=== PATIENT | female | born 1995 | race Two or more races ===

== ENCOUNTER 2017-03-16 02:16 | Emergency (ER) | payer SELFPAY ==
--- NOTE | 2017-03-16 02:53 | EDM.PDOC ---
ED HPI GENERAL MEDICAL PROBLEM - General Chief Complaint: General Stated Complaint: L HAND NUMBNESS Time Seen by Provider: 03/16/17 02:40 Source of Information: Reports: Patient, Family, RN Notes Reviewed History Limitations: Reports: No Limitations - History of Present Illness INITIAL COMMENTS - FREE TEXT/NARRATIVE: 22-year-old female presents emergency department day complaint of left hand numbness predominantly in digits 123, she has had this problem for 3 years however tonight it seemed to last a little longer than usual symptoms resolve within 2-3 hours, recently moved here from [place] 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 Left Feet Pain Score (Numeric/FACES): 4 - Related Data Allergies Allergy/AdvReac Type Severity Reaction Status Date / Time No Known Allergies Allergy Verified 03/16/17 02:25 Home Meds: Home Meds NK [No Known Home Meds] 03/16/17 [History] Past Medical History HEENT History: Reports: Epistaxis Gastrointestinal History: Reports: Other (See Below) Other Gastrointestinal History: irregular bowel movements mix of diarrhea and constipation 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: Other (See Below) Other OB/BYN History: ovarian cysts Musculoskeletal History: Reports: Fracture Endocrine/Metabolic History: Reports: Diabetes, Type II Social & Family History - Tobacco Use Smoking Status *Q: Current Every Day Smoker Years of Tobacco use: 3 Packs/Tins Daily: 0.2 - Caffeine Use Caffeine Use: Reports: Coffee, Soda - Alcohol Use Days Per Week of Alcohol Use: 4 Number of Drinks Per Day: 1 Total Drinks Per Week: 4 Date of Last Drink: 03/14/17 - Recreational Drug Use Recreational Drug Use: No ED ROS GENERAL - Review of Systems Review Of Systems: See Below Constitutional: Reports: No Symptoms Respiratory: Reports: No Symptoms Cardiovascular: Reports: No Symptoms Neurological: Reports: Numbness, Tingling ED EXAM, GENERAL - Physical Exam Exam: See Below Free Text/Narrative:: Examination left hand I don't appreciate any erythema there is no edema radial pulse is +2 Tinel's test is negative, she states it Phalen's maneuver actually improved the sensation she can start to feel more in her fingertips. There is no tenderness at the elbow no tenderness shoulder Exam Limited By: No Limitations General Appearance: Alert, WD/WN, No Apparent Distress Respiratory/Chest: No Respiratory Distress Course - Vital Signs Last Recorded V/S: Last Vital Signs Temp 97.3 F 03/16/17 02:27 Pulse 87 03/16/17 02:27 Resp 16 03/16/17 02:27 BP 143/91 H 03/16/17 02:27 Pulse Ox 95 03/16/17 02:27 - Orders/Labs/Meds Orders: Active Orders 24 hr Category Date Time Status DME for Discharge [COMM] Stat Oth 03/16/17 02:49 Ordered Departure - Departure Time of Disposition: 02:53 Disposition: Home, Self-Care 01 Condition: Good Clinical Impression: Numbness and tingling in left hand - Discharge Information Referrals: PCP,None [Primary Care Provider] - Additional Instructions: Please follow-up with primary care for further evaluation consider carpal tunnel and repetitive motion injury call or return to the emergency department worsening of symptoms - My Orders Last 24 Hours: My Active Orders 03/16/17 02:49 DME for Discharge [COMM] Stat - Assessment/Plan Last 24 Hours: My Active Orders 03/16/17 02:49 DME for Discharge [COMM] Stat Plan: Assessment Acuity = chronic Site and laterality = numbness tingling digits 1 and 2 and 3 Etiology = suspicious for repetitive motion injury radial nerve Manifestations = none Location of injury = Home Lab values = none Plan Recommend follow-up with primary care for further evaluation of carpal tunnel This note was dictated using [employer] voice recognition software please call with any questions on syntax or jaspreet.
== END 2017-03-16 03:10 | disposition home or self-care (01) ==
LOC: JP.ED 02:16
DX: R20.0 Anesthesia of skin (principal); R20.2 Paresthesia of skin; E11.9 Type 2 diabetes mellitus without complications; F17.210 Nicotine dependence, cigarettes, uncomplicated
CPT/HCPCS: 99283; 99284